=== PATIENT | female | born 1970 | race Caucasian/White ===

== ENCOUNTER 2019-03-14 07:01 | Inpatient (IN) | payer MEDICAID ==
[~2019-03-14] VITALS: Ht 152.4 cm; Wt 64.4 kg
[2019-03-14] MEDS ORDERED: SODIUM CHLORIDE 0.9% 1,000 ML IV ONE (07:19)
[2019-03-14] MEDS ORDERED: KETOROLAC 60MG/2ML VIAL IM ONE (07:30)
[2019-03-14] MEDS ORDERED: KETOROLAC 30MG/ML VIAL IV ONE (07:30)
[2019-03-14] MEDS ORDERED: METOCLOPRAMIDE HCL 10MG/2ML VIAL IV ONE (07:30)
[2019-03-14] MEDS ORDERED: OXYCODONE HCL/ACETAMINOPHEN 5/325MG TABLET PO ONE (07:30)
[2019-03-14] MEDS ORDERED: MORPHINE SULFATE 4 MG/ML CPJ (NOT FOR IM USE) IV STA ×2 (08:51→09:47)
[2019-03-14 11:14] LABS: BASOPHILS % 0.5 % (0.0-2.0); EOSINOPHILS % 2.1 % (0.0-5.0); HEMATOCRIT. 42.9 % (36.0-48.0); HEMOGLOBIN. 14.6 g/dL (12.0-16.0); LYMPHOCYTES % 27.4 % (20.0-50.0); MEAN CORPUSCULAR HEMOGLOBIN 31.1 pg (28.0-32.0); MEAN CORPUSCULAR VOLUME 91.3 fL (81.0-99.0); MEAN PLATELET VOLUME 8.2 fl (7.4-10.4); MONOCYTES % 5.2 % (2.0-8.0); NEUTROPHILS % 64.8 % (40.0-76.0); PLATELET 257 x1000/uL (130-400)
[2019-03-14 11:18] LABS: CHLORIDE 109 mEq/L (98-107)
[2019-03-14] MEDS ORDERED: ONDANSETRON 4MG ODT PO PRN (14:30)
[2019-03-14 15:47] VITALS: BP 97/63
[2019-03-14 16:00] VITALS: BP 97/63
[2019-03-14] MEDS: LIDOCAINE 5% PATCH TOP SCH (16:28)
[2019-03-14] MEDS: MORPHINE SULFATE 2 MG/ML CPJ (NOT FOR IM USE) IV PRN (17:38)
[2019-03-14 18:03] VITALS: BP 105/64
[2019-03-14] MEDS ORDERED: PNEUMOCOCCAL 23-VAL P-SAC VAC 0.5 ML IM ONE (19:45)
[2019-03-14] MEDS ORDERED: INFLUENZA VIRUS VACCINE(AFLURIA) 0.5ML SYR IM ONE (19:45)
[2019-03-14 20:00] VITALS: BP 104/56
[2019-03-14] MEDS: CYCLOBENZAPRINE 10MG TABLET PO SCH (21:57)
[2019-03-14] MEDS: KETOROLAC 30MG/ML VIAL IV SCH (21:58)
[2019-03-14 23:21] LABS: HCG SCREEN NEGATIVE
[2019-03-15] VITALS: BP 96/48
[2019-03-15 04:00] VITALS: BP 101/55
[2019-03-15] MEDS: KETOROLAC 30MG/ML VIAL IV SCH ×3 (06:36→21:34)
[2019-03-15] MEDS: CYCLOBENZAPRINE 10MG TABLET PO SCH ×3 (06:37→21:33)
[2019-03-15 07:35] LABS: CHLORIDE 110 mEq/L (98-107)
[2019-03-15 07:48] LABS: BASOPHILS % 0.6 % (0.0-2.0); EOSINOPHILS % 3.1 % (0.0-5.0); HEMATOCRIT. 40.2 % (36.0-48.0); HEMOGLOBIN. 13.6 g/dL (12.0-16.0); LYMPHOCYTES % 35.7 % (20.0-50.0); MEAN CORPUSCULAR VOLUME 91.2 fL (81.0-99.0); MEAN PLATELET VOLUME 8.6 fl (7.4-10.4); MONOCYTES % 7.7 % (2.0-8.0); NEUTROPHILS % 52.9 % (40.0-76.0); PLATELET 246 x1000/uL (130-400); RED CELL DISTRIBUTION WIDTH 12.9 % (11.6-14.6)
[2019-03-15 08:00] VITALS: BP 104/56
[2019-03-15] MEDS: ENOXAPARIN 40MG/0.4ML SYR SUBCUT SCH (08:25)
[2019-03-15] MEDS: LIDOCAINE 5% PATCH TOP SCH (08:28)
[2019-03-15 12:00] VITALS: BP 118/58
[2019-03-15 16:00] VITALS: BP 113/65
[2019-03-15] MEDS: MORPHINE SULFATE 2 MG/ML CPJ (NOT FOR IM USE) IV PRN (17:40)
[2019-03-15 20:00] VITALS: BP 95/56
[2019-03-16] VITALS: BP 102/59
[2019-03-16 04:00] VITALS: BP 99/61
[2019-03-16] MEDS: CYCLOBENZAPRINE 10MG TABLET PO SCH ×2 (05:09→13:19)
[2019-03-16] MEDS: KETOROLAC 30MG/ML VIAL IV SCH ×2 (05:11→14:44)
[2019-03-16 07:11] LABS: BASOPHILS % 0.6 % (0.0-2.0); EOSINOPHILS % 3.5 % (0.0-5.0); HEMATOCRIT. 41.1 % (36.0-48.0); HEMOGLOBIN. 13.8 g/dL (12.0-16.0); LYMPHOCYTES % 38.4 % (20.0-50.0); MEAN CORPUSCULAR HEMOGLOBIN 30.6 pg (28.0-32.0); MEAN CORPUSCULAR VOLUME 91.3 fL (81.0-99.0); MEAN PLATELET VOLUME 8.5 fl (7.4-10.4); NEUTROPHILS % 48.5 % (40.0-76.0); PLATELET 245 x1000/uL (130-400); RED CELL DISTRIBUTION WIDTH 12.9 % (11.6-14.6)
[2019-03-16 07:34] LABS: CHLORIDE 110 mEq/L (98-107)
[2019-03-16 08:00] VITALS: BP 110/57
[2019-03-16] MEDS: LIDOCAINE 5% PATCH TOP SCH (09:06)
[2019-03-16] MEDS: ENOXAPARIN 40MG/0.4ML SYR SUBCUT SCH (09:06)
[2019-03-16 12:26] VITALS: BP 96/54
[2019-03-16 16:00] VITALS: BP 109/59
[2019-03-16] MEDS: MORPHINE SULFATE 2 MG/ML CPJ (NOT FOR IM USE) IV PRN (16:22)
[2019-03-16 17:24] VITALS: BP 109/59
== END 2019-03-16 19:04 | disposition short-term general hospital (02) | DRG 351 ==
LOC: ER 07:11 → 8WST 10:13 → EDBEDREQTM 10:15 → EDBEDREQ 10:15 → ENRESERV 12:09
PROVIDERS: ADMIT Internal Medicine; ATTEND Internal Medicine
DX: S39.012A Strain of muscle, fascia and tendon of lower back, initial encounter (principal); I10 Essential (primary) hypertension; R26.2 Difficulty in walking, not elsewhere classified; X58.XXXA Exposure to other specified factors, initial encounter; Y93.89 Activity, other specified; Z82.49 Family history of ischemic heart disease and other diseases of the circulatory system; Y92.89 Other specified places as the place of occurrence of the external cause; Y99.8 Other external cause status
CPT/HCPCS: 36415; 72141; 72148; 74176; 80048; 83735; 84484; 84703; 90686; 90732; 93005; 96372; 96374; 96376; 97161; 99285; J1650; J1885; J2270; J7030

== ENCOUNTER 2023-08-26 13:05 | Emergency (ER) | payer BC, MEDICAID, OTHER ==
[~2023-08-26] VITALS: Ht 154.9 cm; Wt 66.0 kg
[~2023-08-26 13:05] MED LIST: NAPR-681 MT
[2023-08-26 13:14] VITALS: O2SAT 100
[2023-08-26] MEDS ORDERED: IBUP-2028 PO (13:47)
[2023-08-26] MEDS: KETOROLAC 60MG/2ML VIAL IM ONE (14:00)
[2023-08-26 14:04] VITALS: BP 126/86; PULSE 84; RESP 18; TEMP 98.4
== END 2023-08-26 14:06 | disposition home or self-care (01) ==
LOC: ER 13:05
DX: M79.601 Pain in right arm (principal); M54.9 Dorsalgia, unspecified; M25.521 Pain in right elbow
CPT/HCPCS: 96372; 99283; J1885; Z7610